=== PATIENT | female | born 1995 | race Caucasian/White ===

== ENCOUNTER 2020-04-24 14:53 | Emergency (ER) | payer OTHER ==
[~2020-04-24] VITALS: Ht 172.7 cm; Wt 63.5 kg
[2020-04-24] MEDS ORDERED: METOCLOPRAMIDE 10 MG TAB PO ONE (15:45)
[2020-04-24 16:09] VITALS: BP 136/81
[2020-04-24] MEDS ORDERED: REGL10TA6 PO (16:24)
== END 2020-04-24 16:31 | disposition home or self-care (01) ==
LOC: M ED 14:53
DX: O21.0 Mild hyperemesis gravidarum (principal); Z3A.01 Less than 8 weeks gestation of pregnancy

== ENCOUNTER → 2020-05-01 | Outpatient (CLI) | payer OTHER ==
[~2020-05-01] MED LIST: REGL10TA6 PO
[2020-05-01 18:03] LABS: BASO % 0.3 % (0.0-1.0); EOS # 0.2 10^3/uL (0.0-0.5); EOS % 1.8 % (0.0-3.0); HEMATOCRIT 33.9 % (36.0-47.0); HEMOGLOBIN 11.1 g/dl (12.0-15.5); LYMPH % 14.5 % (24.0-44.0); MEAN CORPUSCULAR HEMOGLOBIN 28.2 pg (27.0-33.0); MEAN CORPUSCULAR HGB CONC 32.7 g/dl (32.0-36.5); MEAN CORPUSCULAR VOLUME 86.3 fl (80.0-96.0); MONO % 7.1 % (0.0-5.0); NEUTROPHILS # 10.2 10^3/uL (1.5-8.5); NEUTROPHILS % 75.9 % (36.0-66.0); PLATELET COUNT, AUTOMATED 310 10^3/uL (150-450); RED BLOOD COUNT 3.93 10^6/uL (4.00-5.40); WHITE BLOOD COUNT 13.4 10^3/uL (4.0-10.0)
[2020-05-01 18:25] LABS: ALBUMIN 3.4 GM/DL (3.2-5.2); ALT/SGPT 14 U/L (12-78); BILIRUBIN,TOTAL 0.3 MG/DL (0.2-1.0); BLOOD UREA NITROGEN 14 MG/DL (7-18); CALCIUM LEVEL 8.6 MG/DL (8.5-10.1); CARBON DIOXIDE LEVEL 23 MEQ/L (21-32); CHLORIDE LEVEL 106 MEQ/L (98-107); FREE T4 1.11 NG/DL (0.76-1.46); GLOMERULAR FILTRATION RATE > 60.0 (>60); GLUCOSE, FASTING 77 MG/DL (70-100); HCG, SERUM QUANTITATIVE 146653 MIU/ML; POTASSIUM SERUM 4.2 MEQ/L (3.5-5.1); SODIUM LEVEL 136 MEQ/L (136-145); THYROID STIMULATING HORMONE 0.169 uIU/ML (0.358-3.740); TOTAL PROTEIN 6.8 GM/DL (6.4-8.2)
== END ==
LOC: M PLALAB 14:05
PROVIDERS: ATTEND Family Medicine
DX: O21.0 Mild hyperemesis gravidarum (principal)
CPT/HCPCS: 36415; 80053; 84439; 84443; 84702; 85025; G0463

== ENCOUNTER → 2020-05-16 | Outpatient (CLI) | payer OTHER | LOC: M LRY 09:42 | PROVIDERS: ATTEND Family Medicine | DX: Z36.87 Encounter for antenatal screening for uncertain dates (principal); Z3A.01 Less than 8 weeks gestation of pregnancy; Z53.9 Procedure and treatment not carried out, unspecified reason ==

== ENCOUNTER → 2020-06-15 | Outpatient (REF) | payer OTHER ==
[2020-07-12 11:19] LABS: CHLAMYDIA DNA AMPLIFICATION NEGATIVE (NEGATIVE); GC DNA AMPLIFICATION NEGATIVE (NEGATIVE)
[2020-07-14 03:05] LABS: BASO % 0.2 % (0.0-1.0); EOS # 0.2 10^3/uL (0.0-0.5); EOS % 1.5 % (0.0-3.0); HEMATOCRIT 33.2 % (36.0-47.0); HEMOGLOBIN 10.4 g/dl (12.0-15.5); LYMPH # 1.6 10^3/uL (1.5-5.0); LYMPH % 12.1 % (24.0-44.0); MEAN CORPUSCULAR HEMOGLOBIN 28.4 pg (27.0-33.0); MEAN CORPUSCULAR HGB CONC 31.3 g/dl (32.0-36.5); MEAN CORPUSCULAR VOLUME 90.7 fl (80.0-96.0); MONO # 0.8 10^3/uL (0.0-0.8); MONO % 6.2 % (0.0-5.0); NEUTROPHILS # 10.4 10^3/uL (1.5-8.5); NEUTROPHILS % 79.2 % (36.0-66.0); PLATELET COUNT, AUTOMATED 323 10^3/uL (150-450); RED BLOOD COUNT 3.66 10^6/uL (4.00-5.40); WHITE BLOOD COUNT 13.1 10^3/uL (4.0-10.0)
[2020-07-29 08:10] LABS: HGB SOLUBILITY SEE SEPARATE REPORT
[2020-08-02 13:13] LABS: HEPATITIS C VIRUS ABY INDEX 0.1 INDEX (<0.8); HIV 1&2 SCREEN CENTAUR NEGATIVE (NEGATIVE)
== END ==
LOC: M SFHCWAGY 15:08
PROVIDERS: ATTEND Advanced Practice Midwife
DX: Z34.82 Encounter for supervision of other normal pregnancy, second trimester (principal); Z36.89 Encounter for other specified antenatal screening
CPT/HCPCS: 36415; 83021; 85025; 85660; 86780; 86803; 86850; 86900; 86901; 87088; 87186; 87340; 87389; 87491; 87591; G0463

== ENCOUNTER → 2020-07-20 | Outpatient (CLI) | payer OTHER ==
--- NOTE | 2020-08-15 10:11 | REP ---
COMPLETE OBSTETRIC ULTRASOUND: 07/20/20 CLINICAL: Anatomical evaluation TECHNIQUE: Transabdominal obstetric ultrasound with color Doppler evaluation. FINDINGS: Ultrasound examination demonstrates single live intrauterine in variable presentation. Placenta noted posterior fundally and grade 1 without placenta previa or abruption. Amniotic fluid volume is normal. Cervix measures 4.1cm in length and appears closed. HEART RATE: 132bpm BPD: 44mm; 19 weeks 2 days HC: 166mm; 19 weeks 3 days AC: 143mm; 19 weeks 5 days HL: 31mm; 20 weeks 3 days Estimated age by current measurements 19 weeks 5 days Estimated weight 315g (83rd percentile) Anatomical assessment demonstrates normal cisterna magna, cavum, thalamus, spine, stomach, kidneys/bladder, four chamber heart/ventricular outflow tracts, three vessel cord/cord insertion, facial features and extremities. A small left choroid plexus cyst is identified measuring less than 3mm. IMPRESSION: 1. Single live intrauterine in variable presentation demonstrating appropriate estimated weight and growth. 2. Anatomical assessment is essentially elder; a less than 3mm left choroid plexus cyst is identified. Remainder of the anatomical assessment is complete and normal. MTDD
== END ==
LOC: M WHC 14:40
PROVIDERS: ATTEND Advanced Practice Midwife
DX: Z34.02 Encounter for supervision of normal first pregnancy, second trimester (principal); Z3A.19 19 weeks gestation of pregnancy

== ENCOUNTER → 2020-09-25 | Outpatient (REF) | payer OTHER ==
[2020-09-25 18:10] LABS: HEMATOCRIT 30.4 % (36.0-47.0); HEMOGLOBIN 9.5 g/dl (12.0-15.5); MEAN CORPUSCULAR HEMOGLOBIN 28.8 pg (27.0-33.0); MEAN CORPUSCULAR HGB CONC 31.3 g/dl (32.0-36.5); MEAN CORPUSCULAR VOLUME 92.1 fl (80.0-96.0); PLATELET COUNT, AUTOMATED 224 10^3/uL (150-450); WHITE BLOOD COUNT 13.1 10^3/uL (4.0-10.0)
== END ==
LOC: M PLALAB 13:34
PROVIDERS: ATTEND Obstetrics & Gynecology
DX: Z34.02 Encounter for supervision of normal first pregnancy, second trimester (principal)

== ENCOUNTER → 2020-11-20 | Outpatient (REF) | payer OTHER | LOC: M PLALAB 10:20 | PROVIDERS: ATTEND Obstetrics & Gynecology | DX: Z34.80 Encounter for supervision of other normal pregnancy, unspecified trimester (principal); Z3A.36 36 weeks gestation of pregnancy | CPT/HCPCS: 87081; G0463 ==

== ENCOUNTER 2020-12-10 20:31 | Inpatient (IN) | payer OTHER ==
[~2020-12-10] VITALS: Ht 172.7 cm; Wt 79.0 kg
[2020-12-10 20:49] VITALS: BP 126/84
[2020-12-10] MEDS ORDERED: PRENTAB9 PO (21:03)
[2020-12-10] MEDS ORDERED: LACTATED RINGER'S 1000 ML IV STA (22:10)
[2020-12-10] MEDS ORDERED: LR 1,000 ML IV SCH (22:10)
[2020-12-10] MEDS ORDERED: OXYTOCIN DRIP 30 UNITS in IV 1 EA IV SCH (22:15)
[2020-12-10 22:49] LABS: HEMATOCRIT 30.8 % (36.0-47.0); HEMOGLOBIN 9.8 g/dl (12.0-15.5); MEAN CORPUSCULAR HEMOGLOBIN 27.8 pg (27.0-33.0); MEAN CORPUSCULAR HGB CONC 31.8 g/dl (32.0-36.5); MEAN CORPUSCULAR VOLUME 87.3 fl (80.0-96.0); PLATELET COUNT, AUTOMATED 168 10^3/uL (150-450); RED BLOOD COUNT 3.53 10^6/uL (4.00-5.40); WHITE BLOOD COUNT 11.3 10^3/uL (4.0-10.0)
--- NOTE | 2020-12-10 23:06 | HPEPDOC ---
Obstetrical History & Physical General Date of Admission Dec 10, 2020 at 21:53 Primary Care Physician: MYRNA JOHNSON CNM History of Present Illness Rochelle is a 25 y/o at 39.4weeks. JAMIE 12/13/20 by LMP 03/08/20. She started care at [facility] in the first trimester. Presented to L&D today with c/o regular contractions every 8 minutes and a history of a 3hr labor. Reports decreased movement today but nothing that concerned her to come to the hospital. Denies LOF, vaginal bleeding. Denies SOB, chest pain, difficulty breathing. Denies headaches, visual changes, nausea, and epigastric pain. She has had an uncomplicated . Previously had depression, not currently taking medication. Chief Complaint: Contractions, term Information Provided By: Patient Age: 25 : 2 Term: 1 Pre-term: 0 Abortions: 0 Livin Care Care: Good Care Dating Final EDC: Dec 13, 2020 Final EDC by: 1st trimester (US) LMP: Mar 08, 2020 1st Trimester Date: May 15, 2020 Weeks + Days: 10.4 EGA at Admission: 39.4 Antepartum Course Diagnos(e)s History of Depression with first child, not taking medication at this time. Height (inches): 68 Pre- weight (lbs.): 147 Admission Weight (lbs.): 174 Change in Weight (lbs.): 27 Past Medical History Past Obstetrical History : Past Obstetrical History: Primgravida Date of Delivery: Sep 07, 2016 Type of Delivery: Spontaneous Vaginal Del. 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 History: No pertinent history Past Medical History Medical History Depression, no medications currently Surgical History: Denies/None Family History Significant Family History: No pertinent family hx Social History Marital Status: Family situation: Spouse/partner home (Darrell Duron) Psychosocial History: Depression ( Depression with 1st child) * Smoker: non-smoker Alcohol: Denies Drugs: denies Imunizations Tdap status: declined Allergies Coded Allergies: No Known Drug Allergies (Verified Allergy, Unknown, 04/24/20) Medications Scheduled No.137/Iron/Folic Acd ( Vitamin Tablet) 1 Each Tablet, 1 TAB PO DAILY Physical Examination Physical Examination GENERAL: Alert and oriented times three. ABDOMEN: Gravid and non-tender to touch. FETUS: Is vertex (VTX) by sterile vaginal examination (SVE), fetus is vertex (VTX) by Bob. EFW 7.5-8lbs by Troy. HEART RATE: Regular rate and rhythm. LUNGS: Clear to auscultation (CTA) bilaterally. EXTREMITIES: No edema. No clonus. Deep tendon reflexes (DTRs) + 2. Vital Signs/I&O Vital Signs Date Time Temp Pulse Resp B/P (MAP) Pulse Ox O2 Delivery O2 Flow Rate FiO2 12/10/20 20:49 99.3 78 18 126/84 (98) Laboratory Data 24H LABS Laboratory Tests 2 12/10/20 22:00: Serology Scanned Report Hepatitis B Testing Pertinent Laboratoy Data Blood Type: AB+ RBC Antibody Screen: Negative HIV: Negative Hepatitis B: Negative Hepatitis C: Negative Rapid Plasma Reagin: Nonreactive Rubella: Unknown (Ordered today) Chlamydia/Gonorrhea: Negative Group B Streptococcus: Negative Glucose Tolerance Test: 77 Steroid Therapy Steroid Therapy: No Vaginal Examination Dilation: 3 cm (3-4) Effacement: 80% Station: -2 Cervical Consistency: Soft Cervical Position: Posterior Presentation: Cephalic presentation Assessment Heart Rate (FHR): 135 Variability: Minimal to moderate Accelerations: Positive Decelerations: None Tocometer Contractions: Yes Frequency: irregular, every 3-7 min. Duration: less than 60 seconds Strength: palpated as mild, resting tone palp/soft Multi-drug resistant Organism: No history of MDRO Assessment/Plan Assessment IUP at 39.4 weeks IOL for Non Reassuring FHT Category 2 due to minimal variability GBS Negative Plan Admit and orient to Labor and Delivery. Activity as Tolerated. Diet: Clear Liquids. Group B Streptococcus (GBS) negative. Labs and intravenous (IV) per unit protocol. Rubella Titer. Counseled on Pitocin and induction of labor (IOL). Lactated Ringers (LR): Bolus 800 mL prior to epidural, then at 125 mL/hr. Anesthesia consult for epidural placement per her desire. Start Pitocin titration Anticipate normal spontaneous delivery (). C-S as appropriate. MYRNA JOHNSON CNM Dec 10, 2020 23:06
[2020-12-10 23:18] VITALS: BP 116/67
[2020-12-10 23:50] VITALS: BP 111/57
[2020-12-11] VITALS (20 sets, daily range): BP systolic 101–139; BP diastolic 57–82
[2020-12-11] MEDS ORDERED: FENTANYL 2MCG/ML ROPIVACAINE 0.2% IN 0.9% NACL 100ML IVBAG As Ordered ONE (01:54)
[2020-12-11] MEDS ORDERED: LACTATED RINGER'S 1000 ML IV PRN (03:30)
[2020-12-11] MEDS ORDERED: NALOXONE INJ 0.4MG/1ML VIAL (J2310 PER 1MG) IV PRN (03:30)
[2020-12-11] MEDS ORDERED: ePHEDrine SULFATE 25 MG/5 ML(5MG/ML) SYRINGE IV PRN (03:30)
[2020-12-11] MEDS ORDERED: REFRIGERATOR IV KEYS XX PRN (03:30)
[2020-12-11] MEDS ORDERED: EPIDURAL/PCA KEYS XX PRN (03:30)
[2020-12-11] MEDS ORDERED: ONDANSETRON 4MG/2ML VIAL IV PRN (03:30)
[2020-12-11] MEDS ORDERED: diphenhydrAMINE 50MG/ML VIAL (J1200) IV PRN (03:30)
[2020-12-11] MEDS ORDERED: FENTANYL/ROPIVACAINE/NACL BAG 100 ML EPIDURAL SCH (03:30)
[2020-12-11] MEDS ORDERED: EPIDURAL COMMENT XX SCH (03:30)
[2020-12-11] MEDS ORDERED: OXYTOCIN DRIP 30 UNITS in IV 1 EA IV SCH (04:07)
[2020-12-11] MEDS ORDERED: METHYLERGONOVINE MALEATE 0.2 MG TAB PO PRN (04:15)
[2020-12-11] MEDS ORDERED: ANUSOL HC CREAM 30GM TOP PRN (04:15)
[2020-12-11] MEDS ORDERED: ACETAMINOPHEN TAB 650MG DOSE (2X325MG) PO PRN (04:15)
[2020-12-11] MEDS ORDERED: RHOGAM 300 MCG (1500 IU) INJ (J2790) IM SCH (04:15)
[2020-12-11] MEDS ORDERED: MEASLES,MUMPS,RUBELLA VACCINE INJ (MMR-II) (90707) SC SCH (04:15)
[2020-12-11] MEDS ORDERED: DOCUSATE SODIUM 100MG CAPSULE PO PRN (04:15)
[2020-12-11] MEDS ORDERED: IBUPROFEN 600MG TAB PO PRN (04:15)
[2020-12-11] MEDS ORDERED: ACETAMINOPHEN 500 MG TAB PO PRN (04:15)
[2020-12-11] MEDS ORDERED: BENZOCAINE 20% HEMORRHOIDAL OINTMENT 28GM TUBE TOP PRN (04:15)
--- NOTE | 2020-12-11 04:15 | DNPDOC ---
[facility] Delivery Note Delivery Note DATE OF DELIVERY: 12/11/20 @ 0348 PREDELIVERY DIAGNOSIS: 39-5/7 weeks' gestation and IOL for Non Reassuring FHT. POST DELIVERY DIAGNOSIS: Delivered. PROCEDURE: Spontaneous vaginal delivery. PROVIDER: Myrna Templeton CNM, TAMIKO and RODOLFO Martin ANESTHESIA: Epidural. ESTIMATED BLOOD LOSS: 150 mL. FINDINGS: 7 pound 14 ounce, 3560g Female , Score 8/9, placental calcifications DELIVERY SUMMARY: Rochelle is a 25-year-old 2 now para 2-0-0-2 who was admitted to labor and delivery for Non reassuring FHT and IOL. Pitocin was started and she progressed to full dilation at 0331. Epidural for pain management. AROM 0338, small amount of clear fluid. head delivered OA with restitution to ROT. Anterior shoulders with gentle downward trasction and corpus followed with strong maternal pushing efforts. Infant placed skin to skin on maternal abdomen. Delayed cord clamping until pulsations ceased. Clamped x2 and cut by FOB. Cord blood collected. 3 vessel cord noted. Intact placenta via sonia mechanism delivered at 0353. Fundal massage and IV Pitocin bolus started. Fundus Firm at U-1, small flow, no clots. Perineum, vagina, and cervix examined and noted to be intact, small bilateral labial abrasions hemostatic, no repair needed. Parents plan to name "Blessings" and formula feed her. Mother and left in stable condition. MYRNA TEMPLETON CNM Dec 11, 2020 04:15
[2020-12-11] MEDS: IBUPROFEN 800 MG TAB PO PRN (08:13)
[2020-12-11] MEDS: PRENATAL VITAMINS CHEWABLE TABLET PO SCH (08:13)
[2020-12-12] MEDS: IBUPROFEN 800 MG TAB PO PRN ×2 (01:20→10:10)
[2020-12-12 06:00] VITALS: BP 130/59
--- NOTE | 2020-12-12 06:42 | IPNPDOC ---
Progress Note Date of Service: Dec 12, 2020 Day#: 1 Progress Note SUBJECT: Doing well without complaints. Ambulating, voiding and pain is well-c ontrolled. Reports minimal lochia. OBJECTIVE: VITAL SIGNS: Within normal limits, afebrile. Alert and oriented times three. Abdomen: Fundus firm at U-2. Soft, NTTP. Ext: neg calf tenderness. ASSESSMENT: day #1 status post . Recovering in stable condition. PLAN: 1. Continue routine care 2. Discharge plans today, possible tomorrow VS, I&O, 24H, Fishbone Vital Signs/I&O Vital Signs Date Time Temp Pulse Resp B/P (MAP) Pulse Ox O2 Delivery O2 Flow Rate FiO2 12/12/20 06:00 98.1 65 18 130/59 (82) 98 Room Air VIOLETTA SUTTON MD. Dec 12, 2020 06:41
[2020-12-12] MEDS: PRENATAL VITAMINS CHEWABLE TABLET PO SCH (08:21)
== END 2020-12-12 11:25 | disposition home or self-care (01) | DRG 807 ==
LOC: M LDO 20:31 → M LDI 21:53 → M OBS 12-11 06:22
PROVIDERS: ADMIT Advanced Practice Midwife; ATTEND Advanced Practice Midwife
PROC: 3E033VJ Introduction of Other Hormone into Peripheral Vein, Percutaneous Approach (ICD-10-PCS; 2020-12-10)
PROC: 10E0XZZ Delivery of Products of Conception, External Approach (ICD-10-PCS; principal; 2020-12-11)
PROC: 10907ZC Drainage of Amniotic Fluid, Therapeutic from Products of Conception, Via Natural or Artificial Opening (ICD-10-PCS; 2020-12-11)
DX: O76 Abnormality in fetal heart rate and rhythm complicating labor and delivery (principal); Z37.0 Single live birth; Z3A.39 39 weeks gestation of pregnancy

== ENCOUNTER → 2021-03-06 | Outpatient (REF) | payer OTHER ==
[~2021-03-06] MED LIST changes: +PRENTAB9 PO
[2021-03-06 14:10] LABS: HEMATOCRIT 37.2 % (36.0-47.0); HEMOGLOBIN 11.4 g/dl (12.0-15.5); MEAN CORPUSCULAR HEMOGLOBIN 27.5 pg (27.0-33.0); MEAN CORPUSCULAR HGB CONC 30.6 g/dl (32.0-36.5); MEAN CORPUSCULAR VOLUME 89.9 fl (80.0-96.0); PLATELET COUNT, AUTOMATED 300 10^3/uL (150-450); RED BLOOD COUNT 4.14 10^6/uL (4.00-5.40); WHITE BLOOD COUNT 9.7 10^3/uL (4.0-10.0)
== END ==
LOC: M PLALAB 12:05
PROVIDERS: ATTEND Advanced Practice Midwife
DX: R53.83 Other fatigue (principal)